=== PATIENT | male | born 1980 | race Caucasian/White ===

== ENCOUNTER 2021-01-23 22:08 | Emergency (ER) | payer OTHER ==
[2021-01-23] MEDS ORDERED: Lidocaine 1% 10 ML MDV INJECT ONE (22:37)
--- NOTE | 2021-01-23 22:44 | EDM.PDOC ---
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 Reports that he was cutting plastic lattice with a box bender and it slipped fabric work gloves on, however cut right through. He is up-to-date on tetanus vaccination. - Related Data Allergies Allergy/AdvReac Type Severity Reaction Status Date / Time bupropion [From Wellbutrin] Allergy Hives Verified 01/23/21 22:44 morphine Allergy Hives Verified 01/23/21 22:45 nitroglycerin Allergy Cardiac Verified 01/23/21 22:45 Arrest ED ROS GENERAL - Review of Systems Review Of Systems: Comprehensive ROS is negative, except as noted in HPI. ED EXAM, SKIN/RASH Exam: See Below General Appearance: Alert, WD/WN, No Apparent Distress Respiratory/Chest: No Respiratory Distress, Lungs Clear, Normal Breath Sounds, No Accessory Muscle Use, Chest Non-Tender Cardiovascular: Normal Peripheral Pulses, Regular Rate, Rhythm, No Edema, No Gallop, No JVD, No Murmur, No Rub Extremities: Other (1 cm skin avulsion to the lateral aspect of the pad of the left index finger. Small amount of active bleeding.) Neurological: Alert, Oriented, CN II-XII Intact, Normal Cognition, Normal Gait, Normal Reflexes, No Motor/Sensory Deficits Psychiatric: Normal Affect, Normal Mood Course - Vital Signs Last Recorded V/S: Last Vital Signs Temp 97.2 F 01/23/21 22:42 Pulse 69 01/23/21 22:42 Resp 16 01/23/21 22:42 BP 122/75 01/23/21 22:42 Pulse Ox 96 01/23/21 22:42 - Orders/Labs/Meds Meds: Medications Discontinued Medications Generic Name Dose Route Start Last Admin Trade Name Freq PRN Reason Stop Dose Admin Hydrocodone Bitart/Acetaminophen 2 tab 01/23/21 23:27 01/23/21 23:35 Acetaminophen/Hydrocodone 325-5 Mg Tab PO 01/23/21 23:28 2 tab ONETIME ONE Administration Lidocaine HCl 10 ml 01/23/21 22:37 Lidocaine 1% 10 Ml Mdv INJECT 01/23/21 22:38 ONETIME ONE - Re-Assessments/Exams Free Text/Narrative Re-Assessment/Exam: Patient is a 40-year-old male presenting to the emergency department with complaints of laceration to his left index finger. On exam, he has a proximal 1 cm skin avulsion to the pad of the left index finger. Small amount of active bleeding. Discussed with patient that unfortunate there is no tissue for which to close the laceration. This will have to heal by secondary intention. Area was cleansed with sterile saline and CHG soap. Bacitracin was applied and covered with nonstick gauze and Coban. Patient is up-to-date on his tetanus vaccination. Discussed return precautions and signs of infection. Discharge instructions as documented. Departure - Departure Time of Disposition: 23:23 Disposition: Home, Self-Care 01 Condition: Good Clinical Impression: Laceration - Discharge Information *PRESCRIPTION DRUG MONITORING PROGRAM REVIEWED*: No *COPY OF PRESCRIPTION DRUG MONITORING REPORT IN PATIENT CECE: No Instructions: Laceration Care, Adult Referrals: PCP,Not In Area [Primary Care Provider] - Forms: ED Department Discharge Additional Instructions: You were seen in the emergency department today for a laceration to your left index finger. Unfortunately, this is not unable to be sutured as there is no tissue remaining. Antibiotic ointment and dressing has been applied. Leave this dressing on for 2 days. After that recommend daily removal and wash it gently with normal soap and water. Reapply antibiotic ointment and keep the are a covered. Watch for signs of infection including increased redness, swelling, or purulent drainage. If these should occur, you should be reevaluated either in the clinic or the emergency department. The wound will heal over time, however it will take quite some time as it has to heal from the outside inward.
[2021-01-23] MEDS ORDERED: Acetaminophen/HYDROcodone 325-5 MG Tab PO ONE (23:27)
== END 2021-01-23 23:39 | disposition home or self-care (01) ==
LOC: JD.ED 22:08
DX: S61.211A Laceration without foreign body of left index finger without damage to nail, initial encounter (principal); Z88.8 Allergy status to other drugs, medicaments and biological substances; Z88.5 Allergy status to narcotic agent; W26.8XXA Contact with other sharp object(s), not elsewhere classified, initial encounter
CPT/HCPCS: 99282; A9270

== ENCOUNTER 2022-11-15 07:51 | Emergency (ER) | payer OTHER ==
[2022-11-15] MEDS ORDERED: Sodium Chloride 0.9% 10 ML Syringe FLUSH PRN (08:16)
[2022-11-15 08:38] LABS: BASOPHILS ABSOLUTE AUTO 0.06 K/mm3 (0.01-0.08); BASOPHILS PERCENT AUTO 0.5 % (0.1-1.2); EOSINOPHILS ABSOLUTE AUTO 0.21 K/mm3 (0.04-0.54); EOSINOPHILS PERCENT AUTO 1.7 (0.8-7.0); HEMATOCRIT 48.2 % (40.1-51.0); HEMOGLOBIN 15.9 gm/dl (13.7-17.5); IMMATURE GRAN ABSOLUTE AUTO 0.04 K/mm3 (0.00-0.10); IMMATURE GRAN PERCENT AUTO 0.3 % (<=1.0); LYMPHOCYTES ABSOLUTE AUTO 1.97 K/mm3 (1.32-3.57); LYMPHOCYTES PERCENT AUTO 16.3 % (21.8-53.1); MEAN CORPUSCULAR HEMOGLOBIN 31.4 pg (25.7-32.2); MEAN CORPUSCULAR VOLUME 95.1 fl (79.0-92.2); MEAN PLATELET VOLUME 11.3 fl (9.4-12.3); MONOCYTES PERCENT AUTO 11.6 % (5.3-12.2); NEUTROPHILS ABSOLUTE AUTO 8.44 K/mm3 (1.78-5.38); NEUTROPHILS PERCENT AUTO 69.6 % (34.0-67.9); PLATELET COUNT,PLT 206 K/mm3 (163-337); RED BLOOD CELL COUNT 5.07 M/mm3 (4.63-6.08); WHITE BLOOD CELL COUNT,WBC 12.12 K/mm3 (4.23-9.07)
[2022-11-15 09:14] LABS: A/G RATIO 0.9 (1-2); ALBUMIN 3.2 g/dl (3.4-5.0); ANION GAP 14.1 (5-15); BILIRUBIN TOTAL 0.5 mg/dL (0.2-1.0); BUN/CREATININE RATIO 12.7 (14-18); CALCIUM 8.6 mg/dL (8.5-10.1); CREATININE 1.1 mg/dL (0.7-1.3); EST CRCL DRUG DOSING (CG) 82.91 mL/min; PROTEIN TOTAL,TP 6.8 g/dl (6.4-8.2)
[2022-11-15 09:16] LABS: POTASSIUM,K 4.1 mEq/L (3.5-5.1)
[2022-11-15] MEDS ORDERED: Ketorolac 30 MG/ML SDV IVPUSH ONE (10:10)
== END 2022-11-15 12:35 | disposition home or self-care (01) ==
LOC: JD.ED 07:51
DX: R07.89 Other chest pain (principal); I50.9 Heart failure, unspecified; I25.2 Old myocardial infarction; J45.909 Unspecified asthma, uncomplicated; M19.90 Unspecified osteoarthritis, unspecified site; F17.210 Nicotine dependence, cigarettes, uncomplicated; Z88.8 Allergy status to other drugs, medicaments and biological substances; Z88.5 Allergy status to narcotic agent; Z79.82 Long term (current) use of aspirin; Z79.899 Other long term (current) drug therapy
CPT/HCPCS: 36415; 71045; 80053; 83735; 83880; 84484; 85025; 93005; 96374; 99284; J1885; J3490; 93010